=== PATIENT | female | born 1995 | race Caucasian/White ===

== ENCOUNTER 2019-02-13 15:36 | Emergency (ER) | payer OTHER ==
[2019-02-13 15:44] VITALS: BP 108/66; PULSE 78; TEMP 98.3; BMI 25.8
--- NOTE | 2019-02-13 15:44 | PDOC ---
Rapid Medical Evaluation Time Seen by Provider: 02/13/19 15:42 Medical Evaluation: Allergies Allergy/AdvReac Type Severity Reaction Status Date / Time No Known Allergies Allergy Verified 03/29/16 17:03 02/13/19 15:44 I have performed a brief in-person evaluation of this patient. The patient presents with a chief complaint of: 4 mos , abd pain Pertinent physical exam findings:stable and in NAD, non-focal I have ordered the following: urine The patient will proceed to the ED for further evaluation.
[2019-02-13] MEDS ORDERED: ACETAMINOPHEN 325 MG TABLET (FP) PO ONE (16:30)
[2019-02-13 16:32] LABS: EPI CELLS 11.9 /HPF (0-5/HPF); HYALINE CASTS 6 /lpf (0-8); PH,URINE 6.5 (5.0-8.0); URINE APPEARANCE CLEAR; URINE BACTERIA 205.1 /hpf (NEGATIVE); URINE BILIRUBIN NEGATIVE (NEGATIVE); URINE COLOR YELLOW; URINE GLUCOSE (UA) NEGATIVE (NEGATIVE); URINE KETONE 4+ (NEGATIVE); URINE LEUK ESTERASE TRACE (NEGATIVE); URINE NITRITE NEGATIVE (NEGATIVE); URINE PROTEIN NEGATIVE (NEGATIVE); URINE RBC 1 /hpf (0-4); URINE UROBILINOGEN 0.2 mg/dL (0.2-1.0); URINE WBC 5 /hpf (0-5)
--- NOTE | 2019-02-13 16:38 | PDOC ---
*Physical Exam - Vital Signs Last Vital Signs Temp Pulse Resp BP Pulse Ox 98.3 F 78 16 108/66 100 02/13/19 15:42 02/13/19 15:42 02/13/19 15:42 02/13/19 15:42 02/13/19 15:42 ED Treatment Course - ADDITIONAL ORDERS Additional order review: Laboratory Results 02/13/19 16:05 Urine Color Yellow Urine Appearance Clear Urine pH 6.5 Ur Specific [place] 1.026 Urine Protein Negative Urine Glucose (UA) Negative Urine Ketones 4+ H Urine Blood Negative Urine Nitrite Negative Urine Bilirubin Negative Urine Urobilinogen 0.2 Ur Leukocyte Esterase Trace Urine WBC (Auto) 5 Urine RBC (Auto) 1 Urine Casts (Auto) 6 U Epithel Cells (Auto) 11.9 Urine Bacteria (Auto) 205.1 Medical Decision Making - Medical Decision Making 02/13/19 16:38 23 yo F 4 months with LLQ pain No dysuria, or hematuria No vomiting No diarrhea Pt seen by Midlevel Provider under my direct supervision I was available for consultation on this patient Ancillary studies reviewed Laboratory Tests 02/13/19 16:05 Urine Nitrite Negative Urine WBC (Auto) 5 Urine RBC (Auto) 1 Urine Bacteria (Auto) 205.1 U/S - IUP, (+) FHR I agree with plan as outlined by Midlevel Provider 02/13/19 17:03 02/13/19 17:04 Discharge - Discharge Information Problems reviewed: Yes Clinical Impression/Diagnosis: Abdominal pain in Qualifiers: Trimester: second trimester Qualified Code(s): O26.892 - Other specified related conditions, second trimester Condition: Stable Disposition: HOME - Follow up/Referral Referrals: Kaitlyn Nascimento [Primary Care Provider] - 2 Days - Patient Discharge Instructions Patient Printed Discharge Instructions: DI for Abdominal Pain -- Early Additional Instructions: Thank you for choosing [facility]. It was a pleasure taking care of you. You may take Tylenol 650 mg every 6 hours by mouth as needed for mild to moderate pain. Do not take more than 4000 mg of Tylenol in 1 day. Your ultrasound shows evidence of at 16 weeks 3 days. Please continue follow-up with your OB doctor Return to the Emergency Department if your symptoms worsen or persist, you have fever, shortness of breath, chest pain, severe abdominal pain, vomiting, vaginal bleeding or other concerning symptoms. - Post Discharge Activity
[2019-02-13] MEDS ORDERED: ACETAMINOPHEN 325 MG TABLET (FP) ONE (16:40)
--- NOTE | 2019-02-13 17:20 | PDOC ---
History of Present Illness - General Chief Complaint: Labor Assessment Stated Complaint: LT SIDE ABD PAIN 4 MONTHS PRG Time Seen by Provider: 02/13/19 15:42 History Source: Patient Exam Limitations: No Limitations Past History - Past Medical History Allergies/Adverse Reactions: Allergies Allergy/AdvReac Type Severity Reaction Status Date / Time No Known Allergies Allergy Verified 02/13/19 15:44 Home Medications: Ambulatory Orders NK [No Known Home Medication] 03/29/16 COPD: No - Psycho Social/Smoking Cessation Hx Smoking Status: No Smoking History: Never smoked Number of Cigarettes Smoked Daily: 1 Hx Alcohol Use: No Drug/Substance Use Hx: No *Physical Exam - Vital Signs Last Vital Signs Temp Pulse Resp BP Pulse Ox 98.3 F 78 16 108/66 100 02/13/19 15:42 02/13/19 15:42 02/13/19 15:42 02/13/19 15:42 02/13/19 15:42 - Physical Exam General Appearance: No: Apparent Distress Respiratory/Chest: positive: Lungs Clear, Normal Breath Sounds. negative: Respiratory Distress Cardiovascular: positive: Regular Rhythm, Regular Rate, S1, S2. negative: Murmur Female Pelvic Exam: negative: adnexal tenderness Gastrointestinal/Abdominal: positive: Normal Bowel Sounds, Soft. negative: Tender, Distended, Guarding, Rebound Integumentary: positive: Normal Color Neurologic: positive: Alert, Normal Mood/Affect ED Treatment Course - ADDITIONAL ORDERS Additional order review: Laboratory Results 02/13/19 16:05 Urine Color Yellow Urine Appearance Clear Urine pH 6.5 Ur Specific [place] 1.026 Urine Protein Negative Urine Glucose (UA) Negative Urine Ketones 4+ H Urine Blood Negative Urine Nitrite Negative Urine Bilirubin Negative Urine Urobilinogen 0.2 Ur Leukocyte Esterase Trace Urine WBC (Auto) 5 Urine RBC (Auto) 1 Urine Casts (Auto) 6 U Epithel Cells (Auto) 11.9 Urine Bacteria (Auto) 205.1 - RADIOLOGY Radiology Studies Ordered: Category Date Time Status TRANSVAGINAL US PREG [US] Stat Ultrasound 02/13/19 16:32 Ordered - Medications Given in the ED: ED Medications Discontinued Medications Generic Name Dose Route Start Last Admin Trade Name Freq PRN Reason Stop Dose Admin Acetaminophen 975 mg 02/13/19 16:30 02/13/19 16:33 Tylenol - PO 02/13/19 16:31 975 mg ONCE ONE Administration Medical Decision Making - Medical Decision Making 23-year-old female with no significant past medical history currently 4 months , (history of 2 abortions) presents with lower abdominal pain from yesterday. Denies fevers, shortness of breath, chest pain, nausea, vomiting, diarrhea, vaginal bleeding, urinary complaints. Patient's last evaluation by OB was 2 days ago and everything was normal at that time. Patient 's OB is Dr. nascimento. Consider ectopic though less suspicious Also consider miscarriage though less suspicious given no vaginal bleeding Could also be round ligament pain Plan: labs, pelvic ultrasound, Tylenol for pain 02/13/19 17:18 Pelvic ultrasound shows IUP at 16 weeks 3 days with FHR noted No other acute findings noted. Likely this could be round ligament pain. Patient appears comfortable and has follow-up with her OB coming up soon Stable for discharge 02/13/19 18:16 Discharge - Discharge Information Problems reviewed: Yes Clinical Impression/Diagnosis: Abdominal pain in Qualifiers: Trimester: second trimester Qualified Code(s): O26.892 - Other specified related conditions, second trimester; R10.9 - Unspecified abdominal pain Condition: Stable Disposition: HOME - Admission No - Additional Discharge Information Prescription Drug Monitoring Program (I-STOP) results: I-STOP not reviewed - Follow up/Referral Referrals: Kaitlyn Nascimento [Primary Care Provider] - 2 Days - Patient Discharge Instructions Patient Printed Discharge Instructions: DI for Abdominal Pain -- Early Additional Instructions: Thank you for choosing [facility]. It was a pleasure taking care of you. You may take Tylenol 650 mg every 6 hours by mouth as needed for mild to moderate pain. Do not take more than 4000 mg of Tylenol in 1 day. Your ultrasound shows evidence of at 16 weeks 3 days. Please continue follow-up with your OB doctor Return to the Emergency Department if your symptoms worsen or persist, you have fever, shortness of breath, chest pain, severe abdominal pain, vomiting, vaginal bleeding or other concerning symptoms. - Post Discharge Activity
== END 2019-02-13 18:30 | disposition home or self-care (01) ==
LOC: JER 15:36
DX: O26.892 Other specified pregnancy related conditions, second trimester (principal); R10.9 Unspecified abdominal pain; Z3A.16 16 weeks gestation of pregnancy
CPT/HCPCS: 76817-TC; 81003; 87086; 99282-25